=== PATIENT | female | born 1985 | race African-American/Black ===

== ENCOUNTER 2018-12-20 11:32 | Emergency (ER) | payer OTHER ==
[~2018-12-20] VITALS: Ht 165.1 cm; Wt 64.0 kg
[2018-12-20] MEDS ORDERED: TETANUS, DIPHTHERIA, PERTUSSIS VAC/PF 0.5ML (>7YR OLD) IM ONE (13:30)
[2018-12-20] MEDS ORDERED: LIDOCAINE HCL 1% 20ML VIAL (Pyxis) INJ INFIL ONE (13:30)
[2018-12-20] MEDS ORDERED: HYDROCODONE/ACETAMINOPHEN 10/325MG TABLET PO ONE (13:30)
[2018-12-20] MEDS ORDERED: CEFAZOLIN 1000MG PREMIX 50 ML IV ONE (14:15)
[2018-12-20 14:52] VITALS: BP 112/68
== END 2018-12-20 18:53 | disposition left against medical advice (07) ==
LOC: ER 12:12
DX: S61.211A Laceration without foreign body of left index finger without damage to nail, initial encounter (principal); W26.0XXA Contact with knife, initial encounter; Y93.G3 Activity, cooking and baking; Y92.9 Unspecified place or not applicable
CPT/HCPCS: 73140; 90715; 96365; 99283; J0690; J3490